=== PATIENT | male | born 1975 ===

== ENCOUNTER 2019-03-28 14:36 | Outpatient (REF) | payer OTHER, SELFPAY ==
[2019-03-28 21:36] LABS: Calculated LDL 111 mg/dL; Cholesterol 185 mg/dL (50-200); HDL Cholesterol 62 mg/dL (40-60); Triglyceride 61 mg/dL (30-150)
[2019-03-30 13:57] LABS: HIV-1/2 Ag & Ab Screen Negative (NEGAT)
[2019-04-01 10:48] LABS: Hepatitis C Ab w Rflx HCV PCR Negative (NEGAT)
== END 2019-03-28 14:56 ==
LOC: NCHCN 14:36
PROVIDERS: PCP Internal Medicine; Visit Provider Internal Medicine
DX: Z13.220 Encounter for screening for lipoid disorders (principal); Z11.59 Encounter for screening for other viral diseases; Z11.4 Encounter for screening for human immunodeficiency virus [HIV]
CPT/HCPCS: 80061; 86803; 87389